=== PATIENT | female | born 1985 | race Two or more races ===

== ENCOUNTER 2022-07-21 15:03 | Emergency (ER) | payer SELFPAY ==
[~2022-07-21] VITALS: Ht 162.6 cm; Wt 61.2 kg
[2022-07-21 15:22] VITALS: BP 124/77
--- NOTE | 2022-07-21 17:51 | NUR ---
EMT AT BEDSIDE FOR SPLINT APPLICATION ON R ANKLE
--- NOTE | 2022-07-21 19:22 | NUR ---
Patient discharged to home in stable condition. Written and verbal after care instructions given. Patient verbalizes understanding of instruction.
== END 2022-07-21 19:24 | disposition home or self-care (01) ==
LOC: ER 15:05
DX: S93.491A Sprain of other ligament of right ankle, initial encounter (principal); Z60.2 Problems related to living alone; X50.1XXA Overexertion from prolonged static or awkward postures, initial encounter; Y93.01 Activity, walking, marching and hiking; Y92.89 Other specified places as the place of occurrence of the external cause; Y99.8 Other external cause status
CPT/HCPCS: 73610-TC